=== PATIENT | male | born 1985 | race Caucasian/White ===

== ENCOUNTER → 2017-06-04 | Day surgery (SDC) | payer OTHER ==
[~2017-06-04] MED LIST: BACITRACIN 50,000 UNIT VIAL ONE; BUPIVACAINE 0.25% 30ML SDV INJ ONE; CEFAZOLIN SOD 1 GM VIAL ONE; CLONAZEPAM1 MG PO; DEXAMETHASONE SOD PHOS INJ 4 MG/ML VIAL ONE; FENTANYL CITRATE/PF 100MCG/2 ML INJ ONE; HEPARIN SOD (PORCINE) 5,000 UNIT/ML VIAL ONE; KETOROLAC TROMETHAMINE 30 MG/ML VIAL ONE; LIDOCAINE HCL 2% LOCAL INJ 5 ML SDV VIAL INJ ONE; MIDAZOLAM HCL 2 MG/2 ML VIAL ONE; ONDANSETRON HCL INJ 2 MG/ML VIAL ONE; PAXIL10 MG PO; PROPOFOL IV EMULSION 10 MG/ML 20 ML VIAL ONE; SEVOFLURANE INHAL SOLN 250 ML PEN BTL ONE; SODIUM CHLORIDE 0.9% 500ML 500 ML ONE
[2017-06-04 09:50] LABS: BASOPHILS % 0.7 % (0.0-1.0); EOSINOPHILS # (AUTO) 0.2 (0.0-0.4); HEMATOCRIT 43.5 % (38.2-49.6); HEMOGLOBIN 15.5 g/dL (14.0-18.0); LYMPHOCYTES % 34.4 % (18.0-39.1); MEAN CORPUSCULAR HEMOGLOBIN 32.9 pg (28-32); MEAN CORPUSCULAR HGB CONC 35.6 g/dL (31-35); MEAN CORPUSCULAR VOLUME 92.4 fL (81-99); MONOCYTES # (AUTO) 0.5 (0.2-0.8); MONOCYTES % 17.4 % (4.4-11.3); NEUTROPHILS # (AUTO) 1.3 (2.1-6.9); NEUTROPHILS % 42.2 % (38.7-80.0); PLATELET COUNT 156 x10e3/uL (140-360); RED BLOOD COUNT 4.71 x10e6/uL (4.3-5.7); RED CELL DISTRIBUTION WIDTH 12.5 % (11.7-14.4)
[2017-06-04 10:03] LABS: ANION GAP 13.1 mmol/L (8-16); BLOOD UREA NITROGEN 10 mg/dL (7-26); BUN/CREATININE RATIO 11 (6-25); CARBON DIOXIDE 25 mmol/L (22-29); CHLORIDE 109 mmol/L (98-107); CREATININE, SERUM 0.95 mg/dL (0.72-1.25); EST GLOMERULAR FILTRATION RATE > 60 ML/MIN (60-); GLUCOSE 98 mg/dL (74-118); POTASSIUM 4.1 mmol/L (3.5-5.1); SODIUM 143 mmol/L (136-145)
--- NOTE | 2017-06-04 11:02 | Diagnostic Imaging Report ---
PROCEDURE:CHEST 2 VIEWS TECHNIQUE:PA and lateral chest INDICATION:Preoperative evaluation for port catheter placement COMPARISON:None. FINDINGS: Lungs are clear. No pleural effusions. Normal mediastinal contour heart size. Intact skeleton. CONCLUSION: Normal chest. Dictated by: Manny Amanda M.D. on 06/04/2017 at 11:01 Electronically approved by: Manny Amanda M.D. on 06/04/2017 at 11:01
--- NOTE | 2017-06-04 12:38 | Operative Report ---
DATE OF PROCEDURE: June 04, 2017 PREOPERATIVE DIAGNOSIS: Testicular cancer, Port-A-Cath needed for chemotherapy. POSTOPERATIVE DIAGNOSIS: Testicular cancer, Port-A-Cath needed for chemotherapy. PROCEDURE PERFORMED: Placement of left subclavian Bard Port-A-Cath number 8-[place]. ANESTHESIA: General. ESTIMATED BLOOD LOSS: Minimal. DRAINS: None. COMPLICATIONS: None. INDICATIONS AND FINDINGS: This is a 32-year-old male diagnosed with testicular cancer status post right orchiectomy, admitted for Port-A-Cath for systemic chemotherapy. A Bard Port-A-Cath number 8-[place] was placed in the left subclavian region using Seldinger technique under fluoroscopic control. It was found to be in the area of the superior vena cava and right atrial junction. DESCRIPTION OF PROCEDURE: With the patient lying on the operative table in the supine position, after administration of general anesthesia, he was placed in the Trendelenburg position. Then the left subclavian vein was percutaneously cannulized. The guidewire introduced and fluoroscopy revealed the guidewire was on the right side of the heart. We went ahead at that point and created a pocket using blunt dissection to place the Bard Port-A-Cath. Then the subcutaneous pocket was created all the way down to the pectoral fascia. The tract of the guidewire was dilated. The sheath was left in place. Then we connected the [id number] with the self-locking mechanism after irrigation with heparinized solution. We then threaded the catheter as we peeled away the sheath into the superior vena cava and right atrial junction. There was good blood flow, and it irrigated well. We then secured the Port-A-Cath to the fascia with 3-0 silk at 3 different points to prevent rotation. Then we closed the wound after ascertaining that hemostasis was absolute using 2-0 Vicryl for the soft tissues, and the skin was closed with subcuticular 5-0 Vicryl. Steri-Strips were applied. The patient tolerated the procedure well and was taken to the recovery room in stable condition. Job#: [id number]
--- NOTE | 2017-06-04 13:02 | Diagnostic Imaging Report ---
PROCEDURE:CHEST SINGLE (PORTABLE) TECHNIQUE:Portable AP chest INDICATION:Postoperative evaluation COMPARISON:Patients [facility], , CHEST 2 VIEWS, 06/04/2017, 10:37. FINDINGS: See conclusion. CONCLUSION: 1. Left subclavian port catheter tip at the high SVC. 2. No evidence of pneumothorax. 3. Clear, symmetrically inflated lungs. No pleural effusions. 4. Normal cardiomediastinal silhouette. 5. Intact skeleton. Dictated by: Manny Amanda M.D. on 06/04/2017 at 13:01 Electronically approved by: Manny Amanda M.D. on 06/04/2017 at 13:01
== END | disposition home or self-care (01) ==
LOC: OR 09:07
PROVIDERS: ATTEND Surgery
DX: C62.91 Malignant neoplasm of right testis, unspecified whether descended or undescended (principal); I99.9 Unspecified disorder of circulatory system; K21.9 Gastro-esophageal reflux disease without esophagitis; F41.9 Anxiety disorder, unspecified; Z79.899 Other long term (current) drug therapy; Z90.79 Acquired absence of other genital organ(s); Z87.01 Personal history of pneumonia (recurrent)
CPT/HCPCS: 36561; C1751; 36415; 71045; 71046; 77001; 80048; 85025; J0690; J1100; J1644; J1885; J2001; J2250; J2405; J7040